=== PATIENT | male | born 2000 | race Two or more races ===

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

== ENCOUNTER 2023-01-06 01:40 | Emergency (ER) | payer OTHER, SELFPAY ==
--- NOTE | ~2023-01-06 | XR_ITS ---
EXAMINATION: XR FOOT, RIGHT CLINICAL INFORMATION: Kicked foot. Pain COMPARISON: None available. TECHNIQUE: AP, lateral, and oblique views of the right foot. FINDINGS: The bones and soft tissues are normal. No fracture. Alignment is anatomic. Joint spaces are maintained. XR/XR foot RT min 3V IMPRESSION: Unremarkable right foot exam.
[2023-01-06 01:41] VITALS: BP 138/77; PULSE 98; RESP 18; TEMP 36.5; O2SAT 99; BMI 18.9
--- NOTE | 2023-01-06 02:13 | ED.LOWEXIN ---
HPI - Extremity Injury (Lower) General Chief Complaint: Extremity Injury, Lower Stated Complaint: right foot inj Time Seen by Provider: 01/06/23 02:12 Source: patient Mode of arrival: ambulatory Limitations: no limitations History of Present Illness HPI Narrative: Patient was at home got upset as there was no cable and was bowed so kicked a wall hitting the dorsum of his right foot now complaining of pain when ambulates no deformity or significant swelling Related Data Previous Rx's Medication Instructions Recorded ibuprofen 600 mg tablet 600 mg PO Q6H PRN fever or pain 01/06/23 #30 tabs Allergies Allergy/AdvReac Type Severity Reaction Status Date / Time peanut [Peanut] Allergy Unknown ANAPHYLAXIS Verified 01/06/23 01:47 Review of Systems Review of Systems: Yes all other systems are reviewed and are negative [facility] Social History Social History Advance Directives: No Advance Directives Information Provided: No Physical Exam Vital Signs: Vital Signs: Last Vital Signs Temp 97.7 F 01/06/23 01:41 Pulse 98 01/06/23 01:41 Resp 18 01/06/23 01:41 BP 138/77 01/06/23 01:41 Pulse Ox 99 01/06/23 01:41 O2 Del Method Room Air 01/06/23 01:41 BMI result Body Mass Index 18.9 Extrem: Ankle/foot/toe images: 1. Soft tissue swelling on dorsum of the right foot no deformity neurovascular intact Medications Administered Discontinued Medications Generic Name Dose Route Start Last Admin Trade Name Freq PRN Reason Stop Dose Admin Ibuprofen 600 mg 01/06/23 02:18 01/06/23 02:31 Ibuprofen 600 Mg Tablet PO 01/06/23 02:19 600 mg ONCE ONE Administration Medical Decision Making Medical Decision Making MDM Narrative: Patient x-ray negative for fracture Marcelino wrap was applied patient was given crutches and discharged Discharge Plan Discharge Clinical Impression: Contusion of foot, right Patient Disposition: Home, Self-Care Instructions: Foot Contusion (ED) Additional Instructions: Marcelino wrap for support, ibuprofen for pain keep the right leg elevated Walk with crutches Prescriptions: New ibuprofen 600 mg tablet 600 mg PO Q6H PRN (Reason: fever or pain) Qty: 30 0RF Interventions: ED Discharge Assessment Last Done: 01/06/23 03:32 Discharge Date/Time: 01/06/23 03:32
[2023-01-06] MEDS: Ibuprofen 600 MG TABLET PO (02:31)
== END 2023-01-06 03:32 | disposition home or self-care (01) ==
PROVIDERS: Emergency Provider Internal Medicine
DX: S90.31XA Contusion of right foot, initial encounter (principal); W22.09XA Striking against other stationary object, initial encounter; Y93.89 Activity, other specified; Y92.039 Unspecified place in apartment as the place of occurrence of the external cause; Y99.9 Unspecified external cause status
CPT/HCPCS: 73630; 99283

== ENCOUNTER 2024-06-26 05:50 | Emergency (ER) | payer OTHER, SELFPAY ==
[2024-06-26 05:58] VITALS: BP 141/87; PULSE 98; RESP 16; TEMP 36.1; O2SAT 98; BMI 21.7
[2024-06-26 06:18] LABS: IDNOW Serial# 08D9AD1C; Strep A Nucleic Acid Negative (Negative)
[2024-06-26 06:48] LABS: Influenza A PCR NEGATIVE (Negative); Influenza B PCR NEGATIVE (Negative); Resp Syncy Virus RNA Qual PCR NEGATIVE (Negative); SARS COV2 PCR INHOUSE NEGATIVE (Negative)
--- NOTE | 2024-06-26 07:26 | ED.GENADULT ---
HPI - General Adult General Chief complaint: General Medical Stated complaint: Throat pain Time Seen by Provider: 06/26/24 07:13 Source: patient and family Mode of arrival: ambulatory Limitations: no limitations History of Present Illness ED Provider: Mary Jo Monreal PA-C HPI narrative: 24-year-old male presents to the ER for evaluation of sore throat for the last 4-5 days. He reports that started off as a scratchy feeling in his throat, mostly on the left side. States it is now more painful, with pain with swallowing liquids and solids. He was seen a few days ago and had a strep and COVID test that were negative. He reports pain with swallowing his own saliva, spitting it out, coughing up some phlegm. He has had a couple episodes of vomiting as well. No abdominal pain, fever, chills. No diarrhea or constipation. He was able to have white rice and ribs last night without vomiting. MD complaint: Sore throat Onset (ago): day(s) (5) Radiation: non-radiation Severity: moderate Quality: sharp Pain Consistency: constant Relieving factors: none Exacerbating factors: eating Associated symptoms: denies other symptoms Treatments prior to arrival: none Related Data Previous Rx's ?Medication ?Instructions ?Recorded ibuprofen 600 mg tablet 600 mg PO Q6H PRN fever or pain 01/06/23 #30 tabs naproxen 500 mg tablet 500 mg PO BID PRN pain #20 tabs 06/26/24 Allergies Allergy/AdvReac Type Severity Reaction Status Date / Time peanut [Peanut] Allergy Unknown ANAPHYLAXIS Verified 06/26/24 06:01 Review of Systems Review of Systems: Yes all other systems are reviewed and are negative [facility] Social History Social History Advance Directives: No Advance Directives Information Provided: Yes Do you have a plan to hurt others: No Plan Physical Exam ED Vital Signs: Vital Signs - 24 hr 06/26/24 05:58 06/26/24 08:09 Temperature 97.0 F 98.1 F Pulse Rate 98 122 H Respiratory Rate 16 20 Blood Pressure 141/87 H 105/64 Pulse Oximetry 98 99 Oxygen Delivery Method Room Air Room Air BMI result Body Mass Index 21.7 Appearance: Alert. Oriented X3. No acute distress. Head: normocephalic, atraumatic. Eyes: Pupils equal, round and reactive to light. ENT: Pharynx with posterior pharyngeal erythema, no tonsillar swelling or exudate. Uvula midline. Voice is normal. Neck: Normal inspection. Neck supple. No cervical lymphadenopathy CVS: Normal heart rate and rhythm. Pulses normal. Respiratory: No respiratory distress. Breath sounds normal. Skin: Skin warm and dry. Normal skin color. Normal skin turgor. No rashes. Extremities: No lower extremity edema. No joint swelling. Neuro/psych: Oriented X 3. No motor deficit. No sensory deficit. CN II-XII intact. Normal speech and cognition. Medications Administered Discontinued Medications Generic Name Dose Route Start Last Admin Trade Name Freq PRN Reason Stop Dose Admin Dexamethasone Sodium Phosphate 10 mg 06/26/24 07:49 06/26/24 08:06 Dexamethasone Sod Phosphate 10 Mg/Ml Vial PO 06/26/24 07:50 10 mg ONCE ONE Administration Ketorolac Tromethamine 30 mg 06/26/24 07:49 06/26/24 08:06 Ketorolac Tromethamine 30 Mg/Ml Vial IM 06/26/24 07:50 30 mg ONCE ONE Administration Lidocaine HCl 15 ml 06/26/24 09:47 06/26/24 10:00 Lidocaine Hcl Viscous 2 % 15 Ml Solution MUCOUS MEM 06/26/24 09:48 15 ml ONCE ONE Administration Ondansetron HCl 4 mg 06/26/24 07:49 06/26/24 08:06 Ondansetron Odt 4 Mg Tab.Rapdis TRANSLINGU 06/26/24 07:50 4 mg ONCE ONE Administration Medical Decision Making Medical Decision Making [facility] Narrative: 24-year-old male presents to the ER for evaluation of sore throat for the last 4-5 days. He has posterior pharyngeal erythema without any tonsillar swelling or exudate. Uvula midline. No evidence of abscess on examination. He reports feels like something is stuck in his throat but he is able to tolerate liquids and solids. He reports pain with swallowing. Doubt food bolus or esophageal obstruction. COVID, flu, RSV as well as strep throat today are all negative. He was given pain control and a dose of Decadron. Pain is improved. He is tolerating p.o.. At this time is stable for discharge home with symptomatic support, NSAIDs, plenty of oral hydration. Patient and mom counseled. Stable for discharge home. Differential Diagnosis Differential Diagnoses: The differential diagnosis associated with the presentation includes strep, covid, flu, rsv, other viral syndrome, bronchitis, pneumonia, no evidence of peritonsillar abcsess or retropharyngeal abscess, no evidence of esophageal food bolus Lab Data MDM Lab Attestation statement: I reviewed the patient's lab results. Labs: Lab Results 06/26/24 Range/Units 06:05 Influenza Type A (PCR) NEGATIVE (Negative) Influenza Type B (PCR) NEGATIVE (Negative) RSV RNA Qual (PCR) NEGATIVE (Negative) SARS-CoV-2 RNA (RT-PCR) NEGATIVE (Negative) S. pyogenes GrpA RISSA Negative (Negative) Independent Historian Clinical information obtained from an independent historian. History obtained from or confirmed by: Parent External Record Review External record reviewed: Outpatient record and Prior outpatient labs Tests considered The following testing was considered but not selected: Considered CT scan of the soft tissues of the neck to rule out foreign body however he is able to tolerate p.o. Prescription Management I considered prescription management with: Pain Medication and Antibiotic Critical Care Time Critical Care Time Critical Care Time: No Discharge Plan Discharge Clinical Impression: Pharyngitis Qualifiers: Pharyngitis/tonsillitis etiology: unspecified etiology Qualified Code(s): J02.9 - Acute pharyngitis, unspecified Patient Disposition: Home, Self-Care Instructions: Pharyngitis (ED) Additional Instructions: you tested negative for covid, flu, rsv and strep throat There is no evidence of obstruction as you are able to tolerate eating and drinking. Your given oral steroids in the ER that are long acting, this will help with any inflammation in your throat. Take the prescribed anti-inflammatory pain medication as needed. Recommend warm saltwater gargles 3-4 times per day. Recommend [id number] Chloraseptic spray and Cepacol lozenges to help numb your throat Drink plenty of fluids and stay hydrated. Follow-up with your doctor. If you develop new or worsening symptoms call 911 or come back to the ER for further evaluation. Prescriptions: New naproxen 500 mg tablet 500 mg PO BID PRN (Reason: pain) Qty: 20 0RF No Action ibuprofen 600 mg tablet 600 mg PO Q6H PRN (Reason: fever or pain) Qty: 30 0RF Print Language: Swedish
[2024-06-26] MEDS: dexAMETHasone sod phosphate 10 MG/ML VIAL PO (08:06)
[2024-06-26] MEDS: Ketorolac Tromethamine 30 MG/ML VIAL IM (08:06)
[2024-06-26] MEDS: Ondansetron ODT 4 MG TAB.RAPDIS TRANSLINGU (08:06)
[2024-06-26 08:09] VITALS: BP 105/64; PULSE 122; RESP 20; TEMP 36.7; O2SAT 99
[2024-06-26] MEDS: Lidocaine HCl Viscous 2 % 15 ML SOLUTION MUCOUS MEM (10:00)
[2024-06-26 11:29] VITALS: BP 122/80; PULSE 90; RESP 18; TEMP 36.9; O2SAT 98
== END 2024-06-26 11:30 | disposition home or self-care (01) ==
PROVIDERS: Emergency Provider Emergency Medicine
DX: J02.9 Acute pharyngitis, unspecified (principal); Z03.818 Encounter for observation for suspected exposure to other biological agents ruled out
CPT/HCPCS: 0241U; 87651; 96372; 99284; J1100; J1885

== ENCOUNTER 2024-07-02 18:58 | Emergency (ER) | payer OTHER, SELFPAY ==
--- NOTE | 2024-07-02 | ECG_ITS ---
Test Reason : PALPITATIONS Blood Pressure : / mmHG Vent. Rate : 116 BPM Atrial Rate : 116 BPM P-R Int : 122 ms QRS Dur : 076 ms QT Int : 330 ms P-R-T Axes : 079 264 043 degrees QTc Int : 458 ms Sinus tachycardia with frequent Premature ventricular complexes Abnormal ECG No previous ECGs available Referred By: Generic ED Physician Electronically Signed By:MURPHY BARRY
--- NOTE | ~2024-07-02 | XR_ITS ---
EXAMINATION: XR CHEST CLINICAL INFORMATION: cp COMPARISON: None available. TECHNIQUE: Frontal view of the chest was obtained. FINDINGS: No significant abnormality is noted involving the heart, lungs, mediastinum, bony thorax or soft tissues. XR/XR chest 1V IMPRESSION: Unremarkable examination. Electronically signed by: Errol Phillips MD 07/02/2024 11:35 PM [facility] [place]
[2024-07-02 19:05] VITALS: BP 157/94; PULSE 106; RESP 16; TEMP 36.4; O2SAT 100; BMI 19.3
[2024-07-02 19:23] LABS: MANUAL DIFF FLAG NO
[2024-07-02 19:24] LABS: Basophils Absolute Auto 0.1 X10*3/uL (0.0-0.2); Basophils Percent Auto 0.9 % (0-2); Eosinophils Absolute Auto 0.1 X10*3/uL (0.0-0.4); Eosinophils Percent Auto 0.9 % (0-4); Hematocrit 48.7 % (42.0-52.0); Hemoglobin 18.1 g/dl (14.0-18.0); Imm Gran Abs Auto 0.01 X10*3/uL (0.00-0.03); Imm Gran Pct Auto 0.2 % (0.0-0.4); Lymphocytes Absolute Auto 1.8 X10*3/uL (1.2-4.9); Lymphocytes Percent Auto 30.4 % (20-40); Mean Corpuscular HGB Conc 37.2 g/dl (31.0-36.0); Mean Corpuscular Hemoglobin 29.2 pg (27.0-33.0); Mean Corpuscular Volume 78.7 fL (80.0-98.0); Mean Platelet Volume 10.5 fL (9.4-12.4); Monocytes Absolute Auto 0.8 X10*3/uL (0.1-1.2); Monocytes Percent Auto 13.5 % (2-11); Neutrophils Absolute Auto 3.2 x10*3/uL (2.0-8.3); Neutrophils Percent Auto 54.1 % (45-73); Platelet Count 218 X10*3/uL (160-400); Red Blood Count 6.19 X10*6/uL (4.60-5.80); Red Cell Distribution Width 13.1 % (11.0-16.0); White Blood Count 5.9 X10*3/uL (4.8-10.8)
[2024-07-02 19:30] LABS: INTERNATIONAL NORM RATIO 1.1 (0.9-1.1); Prothrombin Time 12.9 SEC (10.9-12.4)
--- NOTE | 2024-07-02 19:32 | ED_ITS ---
HPI - General Adult General Chief complaint: Arrhythmia/Palpitations Stated complaint: palpitations Time Seen by Provider: 07/02/24 21:33 Source: patient Limitations: no limitations History of Present Illness ED Provider: Marlena escobar PA-C HPI narrative: 24-year-old male presents with palpitations x1 week. Pt was seen in the ED 06/26 for viral pharyngitis. He has been using over the counter remedies to manage his discomfort. Patient has noticed intermittent racing heart rate. Denies chest pain or shortness of breath. Denies excessive use of stimulants. Denies dizziness, near syncopal symptoms. Related Data Previous Rx's ?Medication ?Instructions ?Recorded ibuprofen 600 mg tablet 600 mg PO Q6H PRN fever or pain 01/06/23 #30 tabs naproxen 500 mg tablet 500 mg PO BID PRN pain #20 tabs 06/26/24 Allergies Allergy/AdvReac Type Severity Reaction Status Date / Time peanut [Peanut] Allergy Unknown ANAPHYLAXIS Verified 07/02/24 19:11 Review of Systems 2 Review of Systems: Yes all other systems are reviewed and are negative Constitutional: Constitutional: Denies fatigue and Denies fever(s) ENT: Reports sore throat Cardiovascular: Cardiovascular: Denies chest pain, Reports rapid heart rate and Denies dyspnea Respiratory: Respiratory: Denies cough and Denies dyspnea Gastrointestinal: Gastrointestinal: Denies abdominal pain, Denies nausea and Denies vomiting Endocrine: Endocrine: Denies fatigue PMF Past Medical History Attestation statement: The following information was validated with the patient. Social History Social History Advance Directives: No Advance Directives Information Provided: No Do you have a plan to hurt others: No Plan Physical Exam ED Vital Signs: Vital Signs - 24 hr 07/02/24 19:05 07/02/24 20:00 07/02/24 22:00 Temperature 97.6 F 97.9 F 97.3 F Pulse Rate 106 H 99 94 Respiratory Rate 16 14 16 Blood Pressure 157/94 H 156/97 H 156/86 H Pulse Oximetry 100 100 99 Oxygen Delivery Method Room Air Room Air Room Air BMI result Body Mass Index 19.3 Const Other: Awake, appears anxious Orientation/consciousness: patient oriented x3 Resp Other: Nonlabored respirations Cardio Other: Normal peripheral perfusion Skin Other: Warm dry no rash Neuro General: patient oriented x3, no focal motor deficits and CN's II-XI intact bilaterally Psych Other: Cooperative, but appears anxious Course Course Course Narrative: This is an RME done by ANILA Lopez: Additional HPI, ROS, PE not included below will be deferred to primary provider. 24 yo m present w/ palpitations x 1 week worsening. Feels discomfort in center of chest. Progressivly worsening. No sob. Denies drugs and alcohol Pe patient appears well Plan- labs Medical Decision Making Medical Decision Making MDM Narrative: 24-year-old male presents with palpitations x1 week. Pt was seen in the ED 06/26 for viral pharyngitis. He has been using over the counter remedies to manage his discomfort. Patient has noticed intermittent racing heart rate. Denies chest pain or shortness of breath. Denies excessive use of stimulants. Denies dizziness, near syncopal symptoms. Plan: Screening labs obtained, looking for underlying organic causes that could have precipitated the palpitations; i.e. anemia, electrolyte abnormality, dehydration, infection. Thought about new arrhythmia, EKG obtained, no arrhythmia found. Thought about ACS, troponin EKG and chest x-ray were obtained, however the patient is a 24y/o and has no risk factors for coronary artery disease. Given tachycardia, thought about PE, however he is not persistently tachycardic, his rate is now under 100, he has no objective signs symptoms for DVT on exam, he has no reported chest pain or shortness of breath he is not hypoxic, I am deferring a dimer. I have independently reviewed the following tests: Labs: No leukocytosis, not anemic, no electrolyte abnormality, troponin negative , viral panel negative EKG: Sinus tachycardia rate of 116, no ischemic changes no ectopy, QTC 458 Chest x-ray: No pleural effusion or pulmonary edema no pneumonia Lab Data 07/02/24 19:19 07/02/24 19:19 Labs: Lab Results 07/02/24 07/02/24 07/02/24 Range/Units 19:18 19:19 22:28 WBC 5.9 (4.8-10.8) X10*3/uL RBC 6.19 H (4.60-5.80) X10*6/uL Hgb 18.1 H (14.0-18.0) g/dl Hct 48.7 (42.0-52.0) % MCV 78.7 L (80.0-98.0) fL MCH 29.2 (27.0-33.0) pg MCHC 37.2 H (31.0-36.0) g/dl RDW 13.1 (11.0-16.0) % Plt Count 218 (160-400) X10*3/uL MPV 10.5 (9.4-12.4) fL Immature Gran % (Auto) 0.2 (0.0-0.4) % Neut % (Auto) 54.1 (45-73) % Lymph % (Auto) 30.4 (20-40) % Wilson % (Auto) 13.5 H (2-11) % Eos % (Auto) 0.9 (0-4) % Baso % (Auto) 0.9 (0-2) % Lymph # (Auto) 1.8 (1.2-4.9) X10*3/uL Wilson # (Auto) 0.8 (0.1-1.2) X10*3/uL Eos # (Auto) 0.1 (0.0-0.4) X10*3/uL Baso # (Auto) 0.1 (0.0-0.2) X10*3/uL Abs Immat Gran (auto) 0.01 (0.00-0.03) X10*3/uL Absolute Neuts (auto) 3.2 (2.0-8.3) x10*3/uL Absolute Nucleated RBC 0.000 (0.0-0.012) X10*3/uL Nucleated RBC % (auto) 0.0 (0.0-0.2) /100WBC PT 12.9 H (10.9-12.4) SEC INR 1.1 (0.9-1.1) Sodium 140 (135-145) mmol/L Potassium 4.0 (3.3-5.1) mmol/L Chloride 105 (96-108) mmol/L Carbon Dioxide 26 (22-29) mmol/L Anion Gap 13 (12-20) BUN 13 (9-16) mg/dL Creatinine 1.17 (0.5-1.4) mg/dL Estim Creat Clear Calc 71.4 Estimated GFR > 60 Random Glucose 119 H (60-115) mg/dL Calcium 9.8 (8.4-10.2) mg/dL Magnesium 2.2 (1.6-2.6) mg/dL Total Bilirubin 0.6 (0.0-1.0) mg/dL AST 28 (5-37) U/L ALT 37 (0-40) U/L Alkaline Phosphatase 57 (39-117) U/L Troponin I High Sens < 2.7 (<3.5-35.0) ng/L Total Protein 7.7 (6.5-8.0) g/dL Albumin 5.0 (3.5-5.0) g/dL Urine Color Yellow Urine Appearance Cloudy Urine pH 7.0 (5.0-9.0) Ur Specific [place] >= 1.030 H (1.005-1.025) Urine Protein Negative (Neg-Trace) mg/dL Urine Glucose (UA) Negative (Negative) mg/dL Urine Ketones Trace (Negative) mg/dL Urine Blood Negative (Negative) Urine Nitrite Negative (Negative) Ur Leukocyte Esterase Negative (Negative) Influenza Type A (PCR) NEGATIVE (Negative) Influenza Type B (PCR) NEGATIVE (Negative) RSV RNA Qual (PCR) NEGATIVE (Negative) SARS-CoV-2 RNA (RT-PCR) NEGATIVE (Negative) Discharge Plan Discharge Clinical Impression: Palpitations Patient Disposition: Home, Self-Care Instructions: Heart Palpitations in Adolescents (ED) Additional Instructions: Screening labs were obtained, including a cardiac enzyme, there were no abnormalities. You do not have a urinary tract infection, and yet again the viral panel is negative. There were no concerning changes on your EKG, you do not have an abnormal rhythm of your heart. The chest x-ray was clear. You need to establish primary care, if the palpitations persist, the next step would be to have a Holter monitor trial. I am providing you with information see you can establish primary care. Prescriptions: No Action ibuprofen 600 mg tablet 600 mg PO Q6H PRN (Reason: fever or pain) Qty: 30 0RF naproxen 500 mg tablet 500 mg PO BID PRN (Reason: pain) Qty: 20 0RF Print Language: Arabic
[2024-07-02 19:41] LABS: Alanine Aminotransferase 37 U/L (0-40); Alkaline Phosphatase 57 U/L (39-117); Anion Gap 13 (12-20); Aspartate Amino Transferase 28 U/L (5-37); Bilirubin Total 0.6 mg/dL (0.0-1.0); Blood Urea Nitrogen 13 mg/dL (9-16); Calcium 9.8 mg/dL (8.4-10.2); Carbon Dioxide 26 mmol/L (22-29); Chloride 105 mmol/L (96-108); Creatinine Clr Calc Pharmacy 71.4; Estimated Glomerular Filt Rate > 60; Glucose Random 119 mg/dL (60-115); Magnesium 2.2 mg/dL (1.6-2.6); Sodium 140 mmol/L (135-145); Total Protein 7.7 g/dL (6.5-8.0)
[2024-07-02 19:48] LABS: Troponin-I High Sensitivity < 2.7 ng/L (<3.5-35.0)
[2024-07-02 20:00] VITALS: BP 156/97; PULSE 99; RESP 14; TEMP 36.6; O2SAT 100
[2024-07-02 20:04] LABS: Influenza A PCR NEGATIVE (Negative); Influenza B PCR NEGATIVE (Negative); Resp Syncy Virus RNA Qual PCR NEGATIVE (Negative); SARS COV2 PCR INHOUSE NEGATIVE (Negative)
[2024-07-02 22:00] VITALS: BP 156/86; PULSE 94; RESP 16; TEMP 36.3; O2SAT 99
[2024-07-02 22:36] LABS: Appearance Urine Cloudy; Color Urine Yellow; Glucose Urine UA Negative (Negative); Leukocyte Esterase Urine Negative (Negative); Nitrite Urine Negative (Negative); Specific Gravity - Urine >= 1.030 (1.005-1.025); Urine Blood Negative (Negative); Urine Ketones Trace mg/dL (Negative); Urine Protein Negative (Neg-Trace)
[2024-07-02 23:29] VITALS: BP 147/84; PULSE 93; RESP 16; TEMP 36.3; O2SAT 100
[2024-07-02 23:33] VITALS: BP 147/84; PULSE 93; RESP 16; TEMP 36.3; O2SAT 100
== END 2024-07-02 23:33 | disposition home or self-care (01) ==
PROVIDERS: Physician Assistant; Emergency Provider Emergency Medicine
DX: I49.9 Cardiac arrhythmia, unspecified (principal); R00.2 Palpitations; Z03.818 Encounter for observation for suspected exposure to other biological agents ruled out; Z79.899 Other long term (current) drug therapy
CPT/HCPCS: 0241U; 36415; 71045; 80053; 81003; 83735; 84484; 85025; 85610; 93005; 99283; 99285

== ENCOUNTER → 2024-07-02 19:06 | Outpatient (BNV) | payer OTHER, SELFPAY | PROVIDERS: Emergency Provider Emergency Medicine; Visit Provider Internal Medicine | DX: R94.31 Abnormal electrocardiogram [ECG] [EKG] (principal) | CPT/HCPCS: 93010 ==